=== PATIENT | female | born 1970 | race Caucasian/White ===

== ENCOUNTER → 2017-08-22 | Day surgery (SDC) | payer MEDICAID ==
[~2017-08-22] VITALS: Ht 127 cm; Wt 47.2 kg
[~2017-08-22] MED LIST: ACET-2178 GT; ALBU2.5V13 NEB; BACL-141 PO; BISA-81 RC; CHLORHEXIDINE 0.12% PO; CHOL400T15; CLON0.5T4 PO; DIPH25CA83 IM; DOCU50LI GT; FAMO20TA8 GT; FERR220S12 GT; FOLI-68 GT; GLYC2TAB21 GT; IPRA0.2S51 IH; LACO200T2 GT; LACT10SO6 GT; LAMO200T GT; LATA2.5D2 EACHEYE; LEVE500T19 GT; NA P133E8 RC; NACL1 GT; POLY17PO3 GT; PSYL0.4C2 GT; SELE120S4 TP; TIMO15DR12 EACHEYE; VALP250C GT; VITS42.53 TP; ZNOU TOP; [UNRECOGNIZED DRUG - CODE] EACH EAR; [UNRECOGNIZED DRUG - CODE] IM; calcium carbonate GT
== END ==
LOC: OR 08:32
PROVIDERS: ATTEND Internal Medicine Gastroenterology
DX: K94.23 Gastrostomy malfunction (principal); K21.9 Gastro-esophageal reflux disease without esophagitis; R13.12 Dysphagia, oropharyngeal phase; J44.9 Chronic obstructive pulmonary disease, unspecified; I10 Essential (primary) hypertension; G82.50 Quadriplegia, unspecified; R56.9 Unspecified convulsions
CPT/HCPCS: 43246; 93005; C1893; J7030